=== PATIENT | female | born 1965 | race Two or more races ===

== ENCOUNTER 2016-09-01 13:43 | Emergency (ER) | payer MEDICAID, OTHER ==
[~2016-09-01] VITALS: Ht 160 cm; Wt 64.4 kg
[2016-09-01 14:15] VITALS: BP 154/95
[2016-09-01] MEDS ORDERED: cefTRIAXone SOD 1,000 MG VL IM ONE (14:45)
[2016-09-01] MEDS ORDERED: IBUPROFEN 800 MG TAB PO ONE (14:45)
== END 2016-09-01 15:20 | disposition home or self-care (01) ==
LOC: ER 13:57
DX: K04.7 Periapical abscess without sinus (principal); E11.9 Type 2 diabetes mellitus without complications; I10 Essential (primary) hypertension
CPT/HCPCS: 96372; 99283; J0696

== ENCOUNTER 2017-04-21 07:12 | Inpatient (IN) | payer MEDICAID ==
[~2017-04-21] VITALS: Ht 160 cm; Wt 66.5 kg
[2017-04-21 07:53] LABS: Urine Bacteria MOD /hpf (None Seen); Urine Blood 2+ /uL (Negative); Urine WBC 45 /hpf (0 - 5)
[2017-04-21 08:54] LABS: Basophils # (auto) 0.1 uL; Basophils % (auto) 0.6 % (0.0-2.0); Eosinophils # (auto) 0 uL; Eosinophils % (auto) 0.1 % (0.0-7.0); Hematocrit 44.4 % (36.0-46.0); Hemoglobin 14.6 g/dL (12.2-16.2); Lymphocytes % (auto) 15.4 % (10.0-50.0); Mean Corpuscular Hemoglobin 30.7 pg (28.0-32.0); Mean Corpuscular Hgb Conc. 32.8 g/dL (32.0-36.0); Mean Corpuscular Volume 93.6 fL (80.0-100.0); Monocytes # (auto) 0.5 uL; Neutrophils # (auto) 10.5 uL; Neutrophils % (auto) 79.9 % (37.0-80.0); Platelet Count (auto) 268 10^3/uL (140-450); Red Blood Cells 4.75 10^6/uL (4.0-5.20); Red Cell Distribution Width 13.8 % (11.8-14.3); White Blood Cell 13.2 10^3/uL (4.4-10.8)
[2017-04-21 09:15] LABS: Albumin 4.3 g/dL (3.4-5.0); Calcium 9.4 mg/dL (8.5-10.1); Potassium 5.1 mmol/L (3.5-5.1)
[2017-04-21 09:18] LABS: Bilirubin, Total 0.7 mg/dL (0.2-1.0); Total Protein 9.5 g/dL (6.4-8.2)
[2017-04-21] MEDS ORDERED: SODIUM CHLORIDE 0.9% 1,000 ML IV ONE (09:29)
[2017-04-21] MEDS ORDERED: ONDANSETRON HCL 4 MG/2 ML VIAL IV ONE (09:30)
[2017-04-21] MEDS ORDERED: DEXTROSE (50%) 50ML SYRG IV PRN ×2 (09:45→10:45)
[2017-04-21] MEDS ORDERED: cefTRIAXone 1GM/10ml IVPUSH 10 ML IV ONE (10:15)
[2017-04-21] MEDS ORDERED: InsuLIN R (HUMAN) 100 UNITS in SODIUM CHL 0.9% 99 ML IV SCH ×2 (10:15→10:39)
[2017-04-21] MEDS ORDERED: SODIUM CHLORIDE 0.9% 1,000 ML IV SCH ×4 (10:39→16:39)
[2017-04-21] MEDS ORDERED: LORazepam 0.5 MG TAB PO PRN (10:45)
[2017-04-21] MEDS ORDERED: NITROGLYCERIN 0.4 MG SL TAB SL PRN (10:45)
[2017-04-21] MEDS ORDERED: MORPHINE SULF INJ 2 MG/ML SYRINGE 1ML IV PRN ×2 (10:45)
[2017-04-21] MEDS ORDERED: ACETAMINOPHEN 500 MG TAB PO PRN (10:45)
[2017-04-21] MEDS ORDERED: HYDROcodone-ACET 5/325MG TAB PO PRN (10:45)
[2017-04-21] MEDS ORDERED: TEMAZEPAM 15 MG CAP PO PRN (10:45)
[2017-04-21] MEDS ORDERED: PROMETHAZINE HCL 25 MG/ML 1ML IV PRN (10:45)
[2017-04-21] MEDS ORDERED: LACTULOSE 20Gm/30ML SOLN PO PRN (10:45)
[2017-04-21] MEDS: SODIUM CHLORIDE 0.9% 1,000 ML IV SCH ×4 (10:52→23:56)
[2017-04-21] MEDS: ENOXAPARIN SOD 40 MG/0.4 ML SYRINGE SC SCH (11:50)
[2017-04-21] MEDS ORDERED: ACCU-CHEK COMFORT CURVE STRIP VI SCH (12:00)
[2017-04-21 12:25] LABS: BUN/Creatinine Ratio 30.3; Calcium 7.5 mg/dL (8.5-10.1); Potassium 4.4 mmol/L (3.5-5.1)
[2017-04-21 18:06] LABS: BUN/Creatinine Ratio 26.2; Calcium 7.6 mg/dL (8.5-10.1)
[2017-04-21] MEDS: ACCU-CHEK COMFORT CURVE STRIP VI SCH ×3 (21:01→23:53)
[2017-04-21 23:22] LABS: BUN/Creatinine Ratio 22.1; Calcium 7.4 mg/dL (8.5-10.1); Potassium 4.1 mmol/L (3.5-5.1)
[2017-04-21] MEDS: InsuLIN REG 1unit/0.01ml Soln (100units/ml) SC SCH (23:56)
[2017-04-22] VITALS (7 sets, daily range): BP systolic 110–166; BP diastolic 60–89
[2017-04-22] MEDS: ACCU-CHEK COMFORT CURVE STRIP VI SCH ×5 (04:32→20:48)
[2017-04-22] MEDS: InsuLIN REG 1unit/0.01ml Soln (100units/ml) SC SCH ×5 (04:33→20:48)
[2017-04-22] MEDS: SODIUM CHLORIDE 0.9% 1,000 ML IV SCH ×4 (04:42→23:34)
[2017-04-22 07:16] LABS: Basophils # (auto) 0 uL; Basophils % (auto) 0.5 % (0.0-2.0); Eosinophils # (auto) 0.1 uL; Eosinophils % (auto) 2.8 % (0.0-7.0); Hematocrit 33.3 % (36.0-46.0); Hemoglobin 11.3 g/dL (12.2-16.2); Lymphocytes # (auto) 1.6 uL; Lymphocytes % (auto) 39.2 % (10.0-50.0); Mean Corpuscular Hemoglobin 31.1 pg (28.0-32.0); Mean Corpuscular Hgb Conc. 33.9 g/dL (32.0-36.0); Mean Corpuscular Volume 91.8 fL (80.0-100.0); Monocytes # (auto) 0.4 uL; Monocytes % (auto) 8.7 % (0.0-12.0); Neutrophils % (auto) 48.8 % (37.0-80.0); Nucleated Red Blood Cells % 0.1 %; Platelet Count (auto) 189 10^3/uL (140-450); Red Blood Cells 3.63 10^6/uL (4.0-5.20); White Blood Cell 4.1 10^3/uL (4.4-10.8)
[2017-04-22 07:51] LABS: BUN/Creatinine Ratio 20.3; Bilirubin, Total 0.3 mg/dL (0.2-1.0); Calcium 7.5 mg/dL (8.5-10.1); Potassium 3.8 mmol/L (3.5-5.1); Total Protein 6.8 g/dL (6.4-8.2)
[2017-04-22] MEDS ORDERED: cefTRIAXone 1GM/10ml IVPUSH 10 ML IV SCH (09:00)
[2017-04-22] MEDS: ENOXAPARIN SOD 40 MG/0.4 ML SYRINGE SC SCH (09:44)
[2017-04-22] MEDS ORDERED: INSLANTI SC (12:19)
[2017-04-22] MEDS ORDERED: ERGO1CAP6 PO (12:22)
[2017-04-22] MEDS ORDERED: INSU100I2 SC (12:22)
[2017-04-22] MEDS ORDERED: ENAL2.5T PO (12:22)
[2017-04-22] MEDS ORDERED: SIMV10TA84 PO (12:22)
[2017-04-22] MEDS ORDERED: ASP81EC PO (12:23)
[2017-04-22] MEDS: INSULIN DETEMIR(LEVEMIR) 1unit/0.01ml Soln (100units/ml) SC SCH (22:48)
[2017-04-23] MEDS: ACCU-CHEK COMFORT CURVE STRIP VI SCH ×6 (00:41→20:43)
[2017-04-23] MEDS: InsuLIN REG 1unit/0.01ml Soln (100units/ml) SC SCH ×6 (00:42→20:00)
[2017-04-23 05:00] VITALS: BP 119/78
[2017-04-23 05:32] LABS: BUN/Creatinine Ratio 28.2; Bilirubin, Total 0.2 mg/dL (0.2-1.0); Calcium 7.7 mg/dL (8.5-10.1); Potassium 3.6 mmol/L (3.5-5.1); Total Protein 6.7 g/dL (6.4-8.2)
[2017-04-23] MEDS: SODIUM CHLORIDE 0.9% 1,000 ML IV SCH ×3 (09:11→21:05)
[2017-04-23] MEDS ORDERED: ASPirin-EC 81 mg tab PO SCH (10:00)
[2017-04-23] MEDS: ENOXAPARIN SOD 40 MG/0.4 ML SYRINGE SC SCH (10:04)
[2017-04-23] MEDS ORDERED: INFLUENZA QUAD 2017-2018 0.5 ML SYRG IM ONE (11:45)
[2017-04-23 13:00] VITALS: BP 127/76
[2017-04-23 17:00] VITALS: BP 124/76
[2017-04-23 18:40] VITALS: BP 124/76
[2017-04-23] MEDS: INSULIN DETEMIR(LEVEMIR) 1unit/0.01ml Soln (100units/ml) SC SCH (20:50)
== END 2017-04-23 21:05 | disposition home or self-care (01) | DRG 720 ==
LOC: ER 07:12 → TELE 07:13 → TELE-WESTW 04-22 01:08
PROVIDERS: ADMIT Internal Medicine; ATTEND Internal Medicine
DX: A41.9 Sepsis, unspecified organism (principal); E11.10 Type 2 diabetes mellitus with ketoacidosis without coma; E87.1 Hypo-osmolality and hyponatremia; E44.1 Mild protein-calorie malnutrition; E66.01 Morbid (severe) obesity due to excess calories; I10 Essential (primary) hypertension; Z68.26 Body mass index [BMI] 26.0-26.9, adult; N39.0 Urinary tract infection, site not specified; E78.5 Hyperlipidemia, unspecified; Z83.3 Family history of diabetes mellitus; Z90.49 Acquired absence of other specified parts of digestive tract; Z28.21 Immunization not carried out because of patient refusal
CPT/HCPCS: 36415; 36600; 71045; 80048; 80053; 80061; 81001; 82010; 82805; 82962; 83036; 83735; 83930; 85025; 87086; 96361; 96374; 99291; J1815; J2405

== ENCOUNTER 2019-07-31 15:46 | Emergency (ER) | payer MEDICAID ==
[~2019-07-31 15:46] MED LIST: ASP81EC PO; ENAL2.5T PO; ERGO1CAP6 PO; INSLANTI SC; INSU100I2 SC; SIMV10TA84 PO
== END 2019-07-31 16:20 | disposition left against medical advice (07) ==
LOC: ER 15:46
DX: R07.81 Pleurodynia (principal); Z53.21 Procedure and treatment not carried out due to patient leaving prior to being seen by health care provider

== ENCOUNTER 2023-06-08 13:36 | Emergency (ER) | payer MEDICAID, OTHER ==
[~2023-06-08] VITALS: Ht 157.5 cm; Wt 75.0 kg
[~2023-06-08 13:36] MED LIST changes: -ASP81EC PO; +ASPI-394 PO; +ENAL1TAB42 PO; -ENAL2.5T PO; +ERGO1CAP12 PO; -ERGO1CAP6 PO; +SIMV10TA20 PO; -SIMV10TA84 PO
[2023-06-08] MEDS ORDERED: ACET-1080 PO (15:44)
[2023-06-08] MEDS ORDERED: CEPH500C PO (15:44)
[2023-06-08 15:49] VITALS: BP 132/81; PULSE 75; RESP 18; TEMP 98.1; O2SAT 96
== END 2023-06-08 16:02 | disposition home or self-care (01) ==
LOC: ER 13:36
DX: S90.02XA Contusion of left ankle, initial encounter (principal); E11.9 Type 2 diabetes mellitus without complications; E78.5 Hyperlipidemia, unspecified; I10 Essential (primary) hypertension; Z90.49 Acquired absence of other specified parts of digestive tract; Z88.0 Allergy status to penicillin; X50.0XXA Overexertion from strenuous movement or load, initial encounter; Y93.89 Activity, other specified; Y92.89 Other specified places as the place of occurrence of the external cause; Y99.8 Other external cause status
CPT/HCPCS: 73610; 73630